=== PATIENT | male | born 1940 | race Caucasian/White ===

== ENCOUNTER 2017-02-05 00:35 | Inpatient (IN) | payer OTHER ==
[~2017-02-05] VITALS: Ht 162.6 cm; Wt 70.5 kg
[~2017-02-05 00:35] MED LIST: ADVAIR 500/501 DISK IH; ATENOLOL50 MG PO; BENZONATATE200 MG PO; BREO ELLIPTA I1 EACH IH; CALTRATE 6001 TABLE1 PO; CENTRUM SILVER1 EAC3 PO; CODEINE PO; ESCITALOPRAM OX10 MG PO; FLUZONE HI180 MCG/05 IM; LISINOPRIL5 MG PO; LORAZEPAM0.5 MG PO; METFORMIN HCL500 M4 PO; OMEPRAZOLE20 MG PO; PRAVACHOL80 MG PO; PREDNISONE10 MG PO; PRILOSEC40 MG PO; ST. JOSEPH ASPI81 MG PO; TAMSULOSIN HCL0.4 MG PO; TYLENOL EXTRA500 MG PO; TYLENOL WITH C1 EACH PO; VITAMIN B122500 MCG PO; VITAMIN D2000 UNI1 PO; ZOCOR20 MG PO
[2017-02-05 01:04] LABS: BASOPHIL COUNT 0.1 K/uL (0-0.1); EOSINOPHIL (%) 5.4 % (0-5); EOSINOPHIL COUNT 0.9 K/uL (0-0.3); HEMATOCRIT 55.2 % (38.0-50.0); IMMATURE GRANULOCYTE (%) 0.8 % (0.0-0.7); IMMATURE GRANULOCYTE COUNT 0.1 K/uL; INSTRUMENT ABS NEUTROPHIL CT 13.6 K/uL; LYMPHOCYTE COUNT 1.1 K/uL (1.0-2.8); MCH 30.7 PG (29.0-34.0); MCHC 32.8 G/DL (30.0-36.0); MCV 93.7 FL (86-99); MONOCYTE (%) 7.6 % (3-12); MONOCYTE COUNT 1.3 K/uL (0-0.8); NEUTROPHIL (%) 79.4 % (45-76); NEUTROPHIL COUNT 13.6 K/uL (1.8-6.4); PLATELET COUNT 241 K/uL (156-360); RBC DIS.WIDTH-CV 13.1 % (11.8-14.6); RBC DIS.WIDTH-SD 45.4 % (39-53); RED BLOOD COUNT 5.89 M/uL (4.00-5.50); WHITE BLOOD COUNT 17.1 K/uL (4.1-10.2)
[2017-02-05 01:13] LABS: CHLORIDE 104 mEq/L (99-109); POTASSIUM 4.1 mEq/L (3.7-5.4); SODIUM 137 mEq/L (136-147)
[2017-02-05 01:15] LABS: GLUCOSE 170 mg/dL (70-99)
[2017-02-05 01:16] LABS: ANION GAP 10 MEQ/L (2-14)
[2017-02-05 01:17] LABS: TOTAL BILIRUBIN 0.6 mg/dL (0.0-1.0)
[2017-02-05 01:18] LABS: BASE EXCESS 1.1 mEq/L (-3 to +3); BICARBONATE 25.2 mEq/L (22-26); CARBOXY HGB 2.1 % (0-5); COMMENTS - BLOOD GASES C+; DEVICE MASK VENT; FI02 80 %; MODE SPONT; PCO2 38 mm Hg (35-45); PO2 158 mm Hg (80-100); SITE RR; pH 7.43 (7.35-7.45)
[2017-02-05 01:19] LABS: ALKALINE PHOSPHATASE 69 IU/L (3-129); GFR ESTIMATE (CALCULATED) > 59 mL/min/
[2017-02-05 01:19] LABS: PEEP 5 CM/H20; PRES. SUPPORT 10 CM/H2O; TOTAL RESP RATE 26 resp/min
[2017-02-05 01:20] LABS: UREA NITROGEN (BUN) 18 mg/dL (9-23)
[2017-02-05 01:25] LABS: TROP-I INTERPRETATION NEGATIVE; TROPONIN-I 0.06 ng/mL (0.0-0.30)
[2017-02-05 07:30] VITALS: BP 119/77
[2017-02-05 12:21] VITALS: BP 127/74
[2017-02-05 12:43] LABS: POINT-OF-CARE METER ID UU13113781
[2017-02-05 13:02] LABS: TROP-I INTERPRETATION NEGATIVE; TROPONIN-I 0.04 ng/mL (0.0-0.30)
[2017-02-05] MEDS ORDERED: FINASTERIDE5 MG PO (14:06)
[2017-02-05] MEDS ORDERED: LO-DOSE ASPIRIN81 M2 PO (14:07)
[2017-02-05 16:51] VITALS: BP 112/59
[2017-02-05 18:32] LABS: TROP-I INTERPRETATION NEGATIVE; TROPONIN-I 0.04 ng/mL (0.0-0.30)
[2017-02-05 18:54] VITALS: BP 110/64
[2017-02-05 21:16] LABS: POINT-OF-CARE METER ID UU14174216
[2017-02-06] VITALS (7 sets, daily range): BP systolic 102–122; BP diastolic 60–72
[2017-02-06 02:00] LABS: INFLUENZA A VIRAL ANTIGEN NEGATIVE; INFLUENZA B VIRAL ANTIGEN NEGATIVE
[2017-02-06 07:05] LABS: HEMATOCRIT 45.8 % (38.0-50.0); MCH 30.5 PG (29.0-34.0); MCHC 32.1 G/DL (30.0-36.0); MEAN PLAT.VOLUME 10.6 uM^3 (9.0-12.4); PLATELET COUNT 212 K/uL (156-360); RBC DIS.WIDTH-CV 12.9 % (11.8-14.6); RBC DIS.WIDTH-SD 45.1 % (39-53); RED BLOOD COUNT 4.82 M/uL (4.00-5.50); WHITE BLOOD COUNT 21.3 K/uL (4.1-10.2)
[2017-02-06 07:23] LABS: ANION GAP 9 MEQ/L (2-14); CHLORIDE 102 MEQ/L (99-109); GFR ESTIMATE (CALCULATED) > 59 mL/min/; GLUCOSE 196 mg/dL (70-99); POTASSIUM 4.6 MEQ/L (3.7-5.4); SAMPLE HEMOLYSIS CHECK 0; SAMPLE ICTERIC CHECK 0; SAMPLE LIPEMIA CHECK 0; SODIUM 136 MEQ/L (136-147); UREA NITROGEN (BUN) 16 mg/dL (9-23)
[2017-02-06 12:09] LABS: POINT-OF-CARE METER ID UU13113781
[2017-02-06 16:45] LABS: POINT-OF-CARE USER ID ENVKC36
[2017-02-06 20:49] LABS: POINT-OF-CARE METER ID UU14174216
[2017-02-07 00:07] LABS: ADD MIUA? NO; BILIRUBIN NEGATIVE; BLOOD NEGATIVE; COLOR YELLOW ((YELLOW)); GLUCOSE (STRIP) 150; KETONES NEGATIVE; LEUKOCYTES NEGATIVE; NITRITE NEGATIVE; PROTEIN (STRIP) NEGATIVE; SPECIFIC GRAVITY 1.026 (1.000-1.030); UCUL ADDED? NO; UROBILINOGEN 0.2 MG/DL (0.2-1.0)
[2017-02-07 03:59] VITALS: BP 119/74
[2017-02-07 06:46] LABS: ANION GAP 9 MEQ/L (2-14); CHLORIDE 101 MEQ/L (99-109); GFR ESTIMATE (CALCULATED) > 59 mL/min/; GLUCOSE 177 mg/dL (70-99); POTASSIUM 4.4 MEQ/L (3.7-5.4); SAMPLE HEMOLYSIS CHECK 0; SAMPLE ICTERIC CHECK 0; SAMPLE LIPEMIA CHECK 0; SODIUM 135 MEQ/L (136-147); UREA NITROGEN (BUN) 21 mg/dL (9-23)
[2017-02-07 07:30] VITALS: BP 110/62
[2017-02-07 08:07] LABS: POINT-OF-CARE METER ID UU14174216
[2017-02-07 12:15] VITALS: BP 110/63
[2017-02-07 16:00] VITALS: BP 114/62
[2017-02-07 19:00] VITALS: BP 127/68
[2017-02-07 20:53] LABS: POINT-OF-CARE METER ID UU14174216
[2017-02-08] VITALS (7 sets, daily range): BP systolic 107–136; BP diastolic 57–86
[2017-02-08 08:58] LABS: HEMATOCRIT 44.4 % (38.0-50.0); MCH 31.1 PG (29.0-34.0); MCHC 32.9 G/DL (30.0-36.0); MCV 94.7 FL (86-99); MEAN PLAT.VOLUME 9.9 uM^3 (9.0-12.4); PLATELET COUNT 228 K/uL (156-360); RBC DIS.WIDTH-CV 13.1 % (11.8-14.6); RBC DIS.WIDTH-SD 45.2 % (39-53); RED BLOOD COUNT 4.69 M/uL (4.00-5.50); WHITE BLOOD COUNT 20.5 K/uL (4.1-10.2)
[2017-02-08 09:23] LABS: ANION GAP 9 MEQ/L (2-14); CHLORIDE 101 MEQ/L (99-109); GFR ESTIMATE (CALCULATED) > 59 mL/min/; GLUCOSE 223 mg/dL (70-99); POTASSIUM 4.1 MEQ/L (3.7-5.4); SAMPLE HEMOLYSIS CHECK 0; SAMPLE ICTERIC CHECK 0; SAMPLE LIPEMIA CHECK 0; SODIUM 135 MEQ/L (136-147); UREA NITROGEN (BUN) 19 mg/dL (9-23)
[2017-02-08 22:13] LABS: Neutrophil Cytoplasmic Aby Negative (Negative)
[2017-02-09 03:49] VITALS: BP 126/81
[2017-02-09 08:00] VITALS: BP 112/58
[2017-02-09 11:15] VITALS: BP 120/67
[2017-02-09 11:16] LABS: POINT-OF-CARE METER ID UU14174216
[2017-02-09 15:36] VITALS: BP 127/67
[2017-02-09 16:04] LABS: POINT-OF-CARE METER ID UU14174216
[2017-02-09 20:40] VITALS: BP 131/83
[2017-02-09 20:51] LABS: POINT-OF-CARE METER ID UU14174216
[2017-02-09 23:38] VITALS: BP 128/70
[2017-02-10 04:01] VITALS: BP 127/71
[2017-02-10 08:40] VITALS: BP 128/64
[2017-02-10 09:24] LABS: BASE EXCESS 5.2 mEq/L (-3 to +3); CARBOXY HGB 2.6 % (0-5); METHEMOGLOBIN 1.7 % (0-1.5); PCO2 39 mm Hg (35-45); pH 7.48 (7.35-7.45)
[2017-02-10 09:25] LABS: COMMENTS - BLOOD GASES A+C+; DEVICE HHFNC; O2 FLOW 30 L/MIN; SITE RR
[2017-02-10 09:26] LABS: FI02 100 %; TOTAL RESP RATE 20 resp/min
[2017-02-10 09:27] LABS: PO2 43 mm Hg (80-100)
[2017-02-10 09:34] LABS: EOSINOPHIL (%) 0 % (0-5); HEMATOCRIT 45.7 % (38.0-50.0); IMMATURE GRANULOCYTE (%) 1.3 % (0.0-0.7); IMMATURE GRANULOCYTE COUNT 0.3 K/uL; INSTRUMENT ABS NEUTROPHIL CT 21.5 K/uL; LYMPHOCYTE COUNT 0.1 K/uL (1.0-2.8); MCH 30.7 PG (29.0-34.0); MCHC 32.8 G/DL (30.0-36.0); MCV 93.6 FL (86-99); MONOCYTE (%) 5.1 % (3-12); MONOCYTE COUNT 1.2 K/uL (0-0.8); NEUTROPHIL (%) 92.8 % (45-76); NEUTROPHIL COUNT 21.5 K/uL (1.8-6.4); PLATELET COUNT 236 K/uL (156-360); RBC DIS.WIDTH-CV 12.8 % (11.8-14.6); RBC DIS.WIDTH-SD 44.3 % (39-53); RED BLOOD COUNT 4.88 M/uL (4.00-5.50); WHITE BLOOD COUNT 23.2 K/uL (4.1-10.2)
[2017-02-10 10:03] LABS: ANION GAP 8 MEQ/L (2-14); CHLORIDE 100 MEQ/L (99-109); GFR ESTIMATE (CALCULATED) > 59 mL/min/; GLUCOSE 254 mg/dL (70-99); POTASSIUM 4.4 MEQ/L (3.7-5.4); SAMPLE HEMOLYSIS CHECK 0; SAMPLE ICTERIC CHECK 0; SAMPLE LIPEMIA CHECK 0; SODIUM 137 MEQ/L (136-147); UREA NITROGEN (BUN) 19 mg/dL (9-23)
[2017-02-10 12:00] VITALS: BP 137/65; BP 138/65
[2017-02-10 12:03] LABS: BASE EXCESS 5.4 mEq/L (-3 to +3); BICARBONATE 29.9 mEq/L (22-26); CARBOXY HGB 2.5 % (0-5); COMMENTS - BLOOD GASES A+C+; DEVICE HHFNC; METHEMOGLOBIN 1.8 % (0-1.5); O2 FLOW 50 L/MIN; PCO2 42 mm Hg (35-45); PO2 53 mm Hg (80-100); SITE LR; pH 7.46 (7.35-7.45)
[2017-02-10 12:04] LABS: FI02 100 %; TOTAL RESP RATE 20 resp/min
[2017-02-10 16:51] VITALS: BP 137/65
[2017-02-10 20:40] VITALS: BP 125/74
[2017-02-11] VITALS (7 sets, daily range): BP systolic 124–140; BP diastolic 64–84
[2017-02-11 06:19] LABS: EOSINOPHIL (%) 0 % (0-5); HEMATOCRIT 44.9 % (38.0-50.0); IMMATURE GRANULOCYTE (%) 1.1 % (0.0-0.7); IMMATURE GRANULOCYTE COUNT 0.3 K/uL; INSTRUMENT ABS NEUTROPHIL CT 20.6 K/uL; LYMPHOCYTE COUNT 0.2 K/uL (1.0-2.8); MCH 30.6 PG (29.0-34.0); MCHC 32.3 G/DL (30.0-36.0); MCV 94.7 FL (86-99); MEAN PLAT.VOLUME 10.2 uM^3 (9.0-12.4); MONOCYTE (%) 5.2 % (3-12); MONOCYTE COUNT 1.2 K/uL (0-0.8); NEUTROPHIL (%) 92.6 % (45-76); NEUTROPHIL COUNT 20.6 K/uL (1.8-6.4); PLATELET COUNT 219 K/uL (156-360); RED BLOOD COUNT 4.74 M/uL (4.00-5.50); WHITE BLOOD COUNT 22.3 K/uL (4.1-10.2)
[2017-02-11 06:40] LABS: ANION GAP 9 MEQ/L (2-14); CHLORIDE 102 MEQ/L (99-109); GFR ESTIMATE (CALCULATED) > 59 mL/min/; GLUCOSE 193 mg/dL (70-99); POTASSIUM 4.2 MEQ/L (3.7-5.4); SAMPLE HEMOLYSIS CHECK 0; SAMPLE ICTERIC CHECK 0; SAMPLE LIPEMIA CHECK 0; SODIUM 140 MEQ/L (136-147); UREA NITROGEN (BUN) 21 mg/dL (9-23)
[2017-02-11 08:42] LABS: BASE EXCESS 6.2 mEq/L (-3 to +3); BICARBONATE 30.6 mEq/L (22-26); CARBOXY HGB 2.6 % (0-5); COMMENTS - BLOOD GASES A+C+; DEVICE HHFNC; FI02 100 %; METHEMOGLOBIN 1.8 % (0-1.5); O2 FLOW 70 L/MIN; PCO2 42 mm Hg (35-45); PO2 115 mm Hg (80-100); SITE RR; pH 7.47 (7.35-7.45)
[2017-02-11 11:25] LABS: POINT-OF-CARE METER ID UU14174216
[2017-02-11 16:41] LABS: POINT-OF-CARE METER ID UU13113781
[2017-02-11 20:21] LABS: POINT-OF-CARE METER ID UU14174216
[2017-02-12 04:00] VITALS: BP 125/67
[2017-02-12 06:07] LABS: EOSINOPHIL (%) 0 % (0-5); HEMATOCRIT 43.3 % (38.0-50.0); IMMATURE GRANULOCYTE (%) 1.5 % (0.0-0.7); IMMATURE GRANULOCYTE COUNT 0.4 K/uL; INSTRUMENT ABS NEUTROPHIL CT 23.5 K/uL; LYMPHOCYTE COUNT 0.3 K/uL (1.0-2.8); MCHC 32.8 G/DL (30.0-36.0); MCV 94.5 FL (86-99); MEAN PLAT.VOLUME 10.3 uM^3 (9.0-12.4); MONOCYTE (%) 4.7 % (3-12); MONOCYTE COUNT 1.2 K/uL (0-0.8); NEUTROPHIL (%) 92.5 % (45-76); NEUTROPHIL COUNT 23.5 K/uL (1.8-6.4); PLATELET COUNT 224 K/uL (156-360); RBC DIS.WIDTH-CV 12.7 % (11.8-14.6); RBC DIS.WIDTH-SD 43.8 % (39-53); RED BLOOD COUNT 4.58 M/uL (4.00-5.50); WHITE BLOOD COUNT 25.4 K/uL (4.1-10.2)
[2017-02-12 06:41] LABS: ANION GAP 8 MEQ/L (2-14); CHLORIDE 102 MEQ/L (99-109); GFR ESTIMATE (CALCULATED) > 59 mL/min/; GLUCOSE 174 mg/dL (70-99); MAGNESIUM 2.3 mg/dl (1.3-2.7); POTASSIUM 4.4 MEQ/L (3.7-5.4); SAMPLE HEMOLYSIS CHECK 0; SAMPLE ICTERIC CHECK 0; SAMPLE LIPEMIA CHECK 0; SODIUM 140 MEQ/L (136-147); UREA NITROGEN (BUN) 22 mg/dL (9-23)
[2017-02-12 07:23] LABS: POINT-OF-CARE METER ID UU13113781
[2017-02-12 08:00] VITALS: BP 129/71
[2017-02-12 11:30] LABS: POINT-OF-CARE METER ID UU13113781
[2017-02-12 11:33] VITALS: BP 136/72
[2017-02-12 15:30] VITALS: BP 129/70
[2017-02-12 16:04] LABS: POINT-OF-CARE METER ID UU14174216
[2017-02-12 19:20] VITALS: BP 107/64
[2017-02-12 21:00] LABS: POINT-OF-CARE METER ID UU14174216
[2017-02-12 23:10] VITALS: BP 137/77
[2017-02-13 05:27] VITALS: BP 116/68
[2017-02-13 06:43] LABS: EOSINOPHIL (%) 0 % (0-5); HEMATOCRIT 44.4 % (38.0-50.0); IMMATURE GRANULOCYTE (%) 1.3 % (0.0-0.7); IMMATURE GRANULOCYTE COUNT 0.3 K/uL; INSTRUMENT ABS NEUTROPHIL CT 23.8 K/uL; LYMPHOCYTE COUNT 0.2 K/uL (1.0-2.8); MCH 31.4 PG (29.0-34.0); MCHC 33.3 G/DL (30.0-36.0); MCV 94.1 FL (86-99); MONOCYTE (%) 3.2 % (3-12); MONOCYTE COUNT 0.8 K/uL (0-0.8); NEUTROPHIL (%) 94.6 % (45-76); NEUTROPHIL COUNT 23.8 K/uL (1.8-6.4); PLATELET COUNT 212 K/uL (156-360); RBC DIS.WIDTH-CV 12.7 % (11.8-14.6); RBC DIS.WIDTH-SD 44.3 % (39-53); RED BLOOD COUNT 4.72 M/uL (4.00-5.50); WHITE BLOOD COUNT 25.2 K/uL (4.1-10.2)
[2017-02-13 07:00] VITALS: BP 133/78
[2017-02-13 07:06] LABS: ANION GAP 8 MEQ/L (2-14); CHLORIDE 103 MEQ/L (99-109); GFR ESTIMATE (CALCULATED) > 59 mL/min/; GLUCOSE 263 mg/dL (70-99); POTASSIUM 4.5 MEQ/L (3.7-5.4); SAMPLE HEMOLYSIS CHECK 0; SAMPLE ICTERIC CHECK 0; SAMPLE LIPEMIA CHECK 0; SODIUM 140 MEQ/L (136-147); UREA NITROGEN (BUN) 26 mg/dL (9-23)
[2017-02-13 08:11] LABS: POINT-OF-CARE METER ID UU14174216
[2017-02-13 09:32] LABS: BASE EXCESS 4.9 mEq/L (-3 to +3); BICARBONATE 29.9 mEq/L (22-26); CARBOXY HGB 2.5 % (0-5); METHEMOGLOBIN 1.8 % (0-1.5); PCO2 44 mm Hg (35-45); pH 7.44 (7.35-7.45)
[2017-02-13 09:34] LABS: PO2 73 mm Hg (80-100)
[2017-02-13 09:35] LABS: COMMENTS - BLOOD GASES C+; DEVICE HHFNC; FI02 100 %; O2 FLOW 70 L/MIN; SITE RR; TOTAL RESP RATE 22 resp/min
[2017-02-13 10:37] VITALS: BP 132/72
[2017-02-13 10:57] LABS: POINT-OF-CARE METER ID UU14174216
[2017-02-13 16:02] VITALS: BP 119/64
[2017-02-13 16:30] LABS: POINT-OF-CARE METER ID UU13113781
[2017-02-13 19:44] VITALS: BP 112/60
[2017-02-14] VITALS (8 sets, daily range): BP systolic 117–149; BP diastolic 61–76
[2017-02-14 06:56] LABS: EOSINOPHIL (%) 0 % (0-5); HEMATOCRIT 43.9 % (38.0-50.0); IMMATURE GRANULOCYTE (%) 1.5 % (0.0-0.7); IMMATURE GRANULOCYTE COUNT 0.4 K/uL; INSTRUMENT ABS NEUTROPHIL CT 22.8 K/uL; LYMPHOCYTE COUNT 0.4 K/uL (1.0-2.8); MCH 31.6 PG (29.0-34.0); MCHC 33.7 G/DL (30.0-36.0); MCV 93.6 FL (86-99); MEAN PLAT.VOLUME 10.3 uM^3 (9.0-12.4); MONOCYTE (%) 5.2 % (3-12); MONOCYTE COUNT 1.3 K/uL (0-0.8); NEUTROPHIL (%) 91.7 % (45-76); NEUTROPHIL COUNT 22.8 K/uL (1.8-6.4); PLATELET COUNT 213 K/uL (156-360); RBC DIS.WIDTH-CV 12.7 % (11.8-14.6); RBC DIS.WIDTH-SD 43.7 % (39-53); RED BLOOD COUNT 4.69 M/uL (4.00-5.50); WHITE BLOOD COUNT 24.9 K/uL (4.1-10.2)
[2017-02-14 07:52] LABS: ANION GAP 8 MEQ/L (2-14); CHLORIDE 102 MEQ/L (99-109); GFR ESTIMATE (CALCULATED) > 59 mL/min/; GLUCOSE 165 mg/dL (70-99); MAGNESIUM 2.3 mg/dl (1.3-2.7); SAMPLE HEMOLYSIS CHECK 0; SAMPLE ICTERIC CHECK 0; SAMPLE LIPEMIA CHECK 0; SODIUM 143 MEQ/L (136-147); UREA NITROGEN (BUN) 26 mg/dL (9-23)
[2017-02-15 04:13] VITALS: BP 119/71
[2017-02-15 07:13] VITALS: BP 121/73
[2017-02-15 11:36] VITALS: BP 123/76
[2017-02-15 15:42] VITALS: BP 147/70
== END 2017-02-15 16:30 | DRG 190 ==
LOC: EME → EDBD 00:35 → EME 00:35 → EDOF 06:02 → 4EAST 06:02
PROVIDERS: Emergency Medicine; Hospitalist; Internal Medicine; Internal Medicine Pulmonary Disease; Physician Assistant; Student in an Organized Health Care Education/Training Program
DX: J44.0 Chronic obstructive pulmonary disease with (acute) lower respiratory infection (principal); J96.21 Acute and chronic respiratory failure with hypoxia; B37.1 Pulmonary candidiasis; J18.0 Bronchopneumonia, unspecified organism; Z51.5 Encounter for palliative care; Z66 Do not resuscitate; Z77.090 Contact with and (suspected) exposure to asbestos; J84.10 Pulmonary fibrosis, unspecified; D86.0 Sarcoidosis of lung; I10 Essential (primary) hypertension; J44.1 Chronic obstructive pulmonary disease with (acute) exacerbation; I27.2 Other secondary pulmonary hypertension; J20.9 Acute bronchitis, unspecified; E78.5 Hyperlipidemia, unspecified; K21.9 Gastro-esophageal reflux disease without esophagitis; N40.1 Benign prostatic hyperplasia with lower urinary tract symptoms; K59.00 Constipation, unspecified; R39.89 Other symptoms and signs involving the genitourinary system; R00.0 Tachycardia, unspecified; R59.1 Generalized enlarged lymph nodes; Z99.81 Dependence on supplemental oxygen; Z79.52 Long term (current) use of systemic steroids; Z85.21 Personal history of malignant neoplasm of larynx; Z87.891 Personal history of nicotine dependence; Z83.3 Family history of diabetes mellitus; Z80.6 Family history of leukemia
CPT/HCPCS: 36600; 71010; 71275; 80048; 80053; 81003; 82164 90; 82803; 82948; 83605; 83735; 83880; 84145 90; 84484; 85025; 85027; 86021 90; 86038; 87040; 87070; 87106; 87205; 87502; 93005; 93306; 94002; 94640; 94640 76; 94667; 94668; 94760; 94799; 99202; 99281; 99285; J0456; J0692; J0696; J1100; J1644; J1815; J1940; J2405; J2543; J2920; J2930; J3475; J7030; J7050; J7512; J7644